=== PATIENT | male | born 1995 | race Caucasian/White ===

== ENCOUNTER 2024-02-22 08:23 | Emergency (ER) | payer BC, OTHER ==
[2024-02-22] MEDS: cefTRIAXone 1 GM, Lidocaine 1% 2.1 ML IM ONE (09:19)
[2024-02-22] MEDS: Lidocaine 1% 10 ML MDV INJECT ONE (09:19)
[2024-02-22] MEDS: Bupivacaine 0.5% 10 ML SDV INJECT ONE (09:20)
== END 2024-02-22 09:55 ==
LOC: JD.ED 08:23
DX: S62.633A Displaced fracture of distal phalanx of left middle finger, initial encounter for closed fracture (principal); S68.113A Complete traumatic metacarpophalangeal amputation of left middle finger, initial encounter; W23.0XXA Caught, crushed, jammed, or pinched between moving objects, initial encounter
CPT/HCPCS: 64450; 73140; 96372; 99284; J0696; J3490